=== PATIENT | female | born 1975 | race Caucasian/White ===

== ENCOUNTER 2018-11-04 11:38 | Inpatient (IN) | payer OTHER ==
[~2018-11-04] VITALS: Ht 162.6 cm; Wt 85.7 kg
[2018-11-07] MEDS ORDERED: KEFLEX500 MG PO (08:35)
[2018-11-07] MEDS ORDERED: IRON1TAB4 PO (08:36)
== END 2018-11-07 09:00 | disposition home or self-care (01) | DRG 744 ==
LOC: OB/GYN 15:15 → CIR.AMB 11-05 07:52 → EDSTATUS 11-05 10:15 → OB/GYN 11-07 09:00
PROVIDERS: ADMIT Obstetrics & Gynecology
PROC: 0UDB8ZZ Extraction of Endometrium, Via Natural or Artificial Opening Endoscopic (ICD-10-PCS; principal; 2018-11-04)
PROC: 30233N1 Transfusion of Nonautologous Red Blood Cells into Peripheral Vein, Percutaneous Approach (ICD-10-PCS; 2018-11-04)
DX: N93.8 Other specified abnormal uterine and vaginal bleeding (principal); N39.0 Urinary tract infection, site not specified; D50.0 Iron deficiency anemia secondary to blood loss (chronic)